=== PATIENT | male | born 1980 | race Caucasian/White ===

== ENCOUNTER 2016-10-12 14:40 | Emergency (ER) | payer OTHER ==
[2016-10-12 16:18] LABS: PH,URINE 6.5 (5.0-8.0); SPECIFIC GRAVITY 1.015 (1.001-1.030); URINE BILIRUBIN NEGATIVE (NEGATIVE); URINE BLOOD NEGATIVE (NEGATIVE); URINE GLUCOSE (UA) NEGATIVE (NEGATIVE); URINE LEUKOCYTE ESTERASE NEGATIVE (NEGATIVE); URINE NITRITE NEGATIVE (NEGATIVE); URINE PROTEIN NEGATIVE (NEGATIVE); URINE UROBILINOGEN NORMAL (0-1 mg/dl)
[2016-10-12 16:19] LABS: URINE APPEARANCE CLEAR; URINE COLOR YELLOW
[2016-10-13 14:58] LABS: CHLAMYDIA BD Negative (Negative); N.GONORRHOEAE BD Negative (Negative); SOURCE Urine (())
--- NOTE | 2016-10-15 07:51 | US ---
Exam: Scrotum and contents ultrasound COMPARISON: None INDICATION: Right testicular pain. FINDINGS: Ultrasound evaluation the scrotum and its contents was obtained. Right testicle measures 4.9 x 2.6 x 3.3 cm and left testicle measures 4.7 x 2.5 x 3.0 cm. Both testicles are homogeneous in echotexture and without focal mass. Blood flow is present within both testicles and appears symmetric. Epididymides are within normal limits and symmetric. Small right hydrocele is noted. There is no significant hydrocele on the left. IMPRESSION: Small right-sided hydrocele. Otherwise unremarkable ultrasound evaluation of the scrotum and its contents. Dr. Peña called the report to Dr. Schwartz at 1659 hours on 10/12/2016.
== END 2016-10-12 17:38 | disposition home or self-care (01) ==
LOC: ED 14:40
DX: N50.811 Right testicular pain (principal); F17.210 Nicotine dependence, cigarettes, uncomplicated